=== PATIENT | female | born 1980 | race Caucasian/White ===

== ENCOUNTER → 2022-02-22 | Outpatient (CLI) | payer OTHER, SELFPAY ==
--- NOTE | 2022-02-21 16:29 | BI_ITS ---
MAMMOGRAPHY - BILATERAL SCREENING REASON FOR EXAM: Female, 42 years old. Routine annual screening examination. PERTINENT HISTORY: Grandmother with breast cancer. TECHNIQUE: Digital bilateral breast addi (3D mammographic acquisition) in the CC and MLO projections. 2-D mediolateral oblique (MLO) and craniocaudad (CC) views of both breasts were obtained. CAD: Full Field Digital Mammography with Computer Added Detection was performed. COMPARISON: None. Baseline examination. FINDINGS: Breast Composition: The breasts are heterogeneously dense, which may obscure small masses. There are no dominant masses or suspicious calcifications. No other significant abnormalities are identified. BI/SCRN MAMM (CAD)W/ADDI BILAT IMPRESSION: Negative screening mammogram. Yearly followup mammogram recommended. (A) ASSESSMENT CATEGORY: BIRADS Category 1: Negative. A letter regarding these results will be sent to the patient by the facility within 30 days. Approximately 10% of breast cancers are not detected by mammography. A normal mammogram should not delay biopsy of a clinically suspicious abnormality. [id number] Electronically Signed: Gutierrez Orr MD at 21:24 EDT ,
== END | disposition home or self-care (01) ==
PROVIDERS: PCP Internal Medicine; Visit Provider Internal Medicine
DX: Z12.31 Encounter for screening mammogram for malignant neoplasm of breast (principal); Z80.3 Family history of malignant neoplasm of breast
CPT/HCPCS: 77063; 77067

== ENCOUNTER → 2022-03-01 | Outpatient (CLI) | payer OTHER, SELFPAY ==
[2022-03-01 12:27] LABS: Hematocrit 35.7 % (37-47); Hemoglobin 10.9 g/dL (12.0-15.0); Mean Corp Hgb Conc 30.5 g/dL (32-36); Mean Corpuscular Hgb 23.4 pg (27.0-32.0); Mean Corpuscular Volume 76.8 fL (81-99); Mean Platelet Vol. 10.1 fl (6.2-12.0); Platelet Count 456 K/mm3 (150-450); RBC Distribution Width CV 17.6 % (11.6-14.6); RBC Distribution Width SD 48.6 fl (35.1-43.9); Red Blood Count 4.65 M/mm3 (4.2-5.4); White Blood Count 3.8 K/mm3 (4.4-11.0)
[2022-03-01 12:30] LABS: Anion Gap 6 (5-15); BUN 15 mg/dL (7-18); BUN/Creat Ratio 21.7 RATIO (10-20); Calcium,Total 9.1 mg/dL (8.5-10.1); Chloride 106 mmol/L (98-107); Creatinine, Serum 0.69 mg/dL (0.55-1.02); EST Glomerular Filtration Rate 98 mL/min (>60); Est Glom Filt Rate - Afr Amer 119 mL/min (>60); Glucose 101 mg/dL (74-106); Potassium 4.3 mmol/L (3.5-5.1); Sodium Level 137 mmol/L (136-145)
[2022-03-01 13:07] LABS: Hemoglobin A1c 5.5 % (3.8-5.6)
== END | disposition home or self-care (01) ==
LOC: BIMLAB 08:30
PROVIDERS: PCP Internal Medicine
DX: Z01.812 Encounter for preprocedural laboratory examination (principal); M16.31 Unilateral osteoarthritis resulting from hip dysplasia, right hip; M25.551 Pain in right hip; R79.89 Other specified abnormal findings of blood chemistry
CPT/HCPCS: 36415; 80048; 83036; 85027

== ENCOUNTER → 2022-11-29 | Outpatient (CLI) | payer OTHER, SELFPAY ==
[2022-12-02 11:08] LABS: Chlamydia By Nucleic Acid AMP Negative (Negative); Gonococcus By Nucleic Acid AMP Negative (Negative)
[2022-12-04 16:08] LABS: HPV APTIMA, High Risk Negative (Negative)
== END | disposition home or self-care (01) ==
PROVIDERS: PCP Internal Medicine; Referring Provider Nurse Practitioner Women's Health; Visit Provider Nurse Practitioner Women's Health
DX: Z12.4 Encounter for screening for malignant neoplasm of cervix (principal); Z11.3 Encounter for screening for infections with a predominantly sexual mode of transmission
CPT/HCPCS: 87491; 87591; 87624; 88175; G0145

== ENCOUNTER → 2023-01-01 | Outpatient (CLI) | payer OTHER, SELFPAY ==
--- NOTE | 2023-01-01 13:50 | US_ITS ---
INDICATION: bleeding EXAMINATION: US Pelvis Non OB Complete With Transvaginal Imaging TECHNIQUE: Transabdominal and transvaginal pelvic ultrasound was performed. Grayscale, spectral waveform, and color flow Doppler evaluation of the adnexa. COMPARISON: None. FINDINGS: Uterus measures 9.9 x 4.5 x 7.3 cm, transabdominally. Best seen transvaginally, heterogeneous hypoechoic myometrial masses compatible with fibroids. Right anterior uterine fibroid measures 2.3 x 2.1 x 2.3 cm and left posterior uterine fibroid measures 2.9 x 2.7 x 2.9 cm. Suggestion of septate uterine anatomy. Transvaginally, endometrial stripe measures 7.6 mm diameter. Endometrium is normal echotexture with no discrete lesion. Few cervical nabothian cysts present. No adnexal mass or significant free pelvic fluid detected. Somewhat difficult Doppler evaluation of bilateral ovaries secondary to deep positioning but bilateral ovarian color Doppler flow and spectral Doppler waveforms are demonstrated. Ovaries are normal size with no large or complex cyst. Transvaginally, right ovary measures 2.5 x 1.4 x 1.6 cm and left ovary 3.2 x 2 x 2.2 cm. US/Pelvic (Non ) IMPRESSION: 1. There are at least 2 uterine fibroids, largest measuring almost 3 cm diameter. 2. Unremarkable sonographic appearance of endometrium 3. Cervical nabothian cysts Electronically Signed: Ganesh Witt MD at 6:49 EDT ,
== END | disposition home or self-care (01) ==
PROVIDERS: PCP Internal Medicine; Referring Provider Nurse Practitioner Women's Health; Visit Provider Nurse Practitioner Women's Health
DX: N92.0 Excessive and frequent menstruation with regular cycle (principal)
CPT/HCPCS: 76830; 76856

== ENCOUNTER → 2023-02-28 | Outpatient (CLI) | payer OTHER, SELFPAY ==
[2023-02-28 12:25] LABS: Absolute Lymphocyte Count 1.29 X10^3/uL (0.83-4.51); Absolute Neutrophil Count 2.7 X10^3/uL (2.0-7.7); Basophil# 0.05 X10^3/uL; Basophil% 1.1 % (0-1); Eosinophil# 0.14 X10^3/uL; Hematocrit 38.8 % (37-47); Hemoglobin 11.5 g/dL (12.0-15.0); Lymphocyte # 1.29 X10^3/ul (0.83-4.51); Mean Corp Hgb Conc 29.6 g/dL (32-36); Mean Corpuscular Hgb 22.6 pg (27.0-32.0); Mean Corpuscular Volume 76.2 fL (81-99); Mean Platelet Vol. 10.8 fl (6.2-12.0); Monocyte# 0.39 X10^3/uL; Monocyte% 8.5 % (0-10); NRBC Flagged by Analyzer 0 % (0-5); Neutrophil # 2.71 X10^3/uL (2.7-7.7); Neutrophil % 58.7 % (47-70); Platelet Count 476 K/mm3 (150-450); RBC Distribution Width CV 18.6 % (11.6-14.6); RBC Distribution Width SD 50.3 fl (35.1-43.9); Red Blood Count 5.09 M/mm3 (4.2-5.4); White Blood Count 4.6 K/mm3 (4.4-11.0)
[2023-02-28 13:24] LABS: Anion Gap 7 (5-15); BUN 17 mg/dL (7-18); BUN/Creat Ratio 24.5 RATIO (10-20); Calcium,Total 9.3 mg/dL (8.5-10.1); Chloride 106 mmol/L (98-107); Creatinine, Serum 0.69 mg/dL (0.55-1.02); EST Glomerular Filtration Rate 98 mL/min (>60); Est Glom Filt Rate - Afr Amer 118 mL/min (>60); Glucose 99 mg/dL (74-106); Potassium 4.5 mmol/L (3.5-5.1); Sodium Level 135 mmol/L (136-145)
[2023-02-28 15:04] LABS: Hemoglobin A1c 5.3 % (3.8-5.6)
== END | disposition home or self-care (01) ==
LOC: BIMLAB 08:37
PROVIDERS: PCP Internal Medicine
DX: R79.89 Other specified abnormal findings of blood chemistry (principal)
CPT/HCPCS: 36415; 80048; 83036; 85025

== ENCOUNTER → 2024-02-27 | Outpatient (CLI) | payer OTHER, SELFPAY ==
[2024-02-27 12:42] LABS: Absolute Lymphocyte Count 1.38 X10^3/uL (0.83-4.51); Absolute Neutrophil Count 2.8 X10^3/uL (2.0-7.7); Basophil# 0.05 X10^3/uL; Eosinophil# 0.11 X10^3/uL; Eosinophils% 2.3 % (0-5); Hematocrit 35.7 % (37-47); Hemoglobin 10.8 g/dL (12.0-15.0); Lymphocyte # 1.38 X10^3/ul (0.83-4.51); Lymphocyte % 28.5 % (19-41); Mean Corp Hgb Conc 30.3 g/dL (32-36); Mean Corpuscular Hgb 22.3 pg (27.0-32.0); Mean Corpuscular Volume 73.6 fL (81-99); Mean Platelet Vol. 10.3 fl (6.2-12.0); Monocyte# 0.47 X10^3/uL; Monocyte% 9.7 % (0-10); NRBC Flagged by Analyzer 0 % (0-5); Neutrophil # 2.82 X10^3/uL (2.7-7.7); Neutrophil % 58.3 % (47-70); Platelet Count 475 K/mm3 (150-450); RBC Distribution Width CV 18.6 % (11.6-14.6); RBC Distribution Width SD 48.8 fl (35.1-43.9); Red Blood Count 4.85 M/mm3 (4.2-5.4); White Blood Count 4.8 K/mm3 (4.4-11.0)
[2024-02-27 13:43] LABS: ALB/GLOB Ratio 0.9 RATIO (0.9-2.4); AST(SGOT) 13 U/L (15-37); Alanine Aminotransfer ALT/SGPT 16 U/L (13-56); Albumin, Serum 3.5 g/dL (3.2-5.0); Alkaline Phosphatase 63 U/L (45-117); Anion Gap 9 (5-15); BUN 11 mg/dL (7-18); BUN/Creat Ratio 14.6 RATIO (10-20); Calcium,Total 9.1 mg/dL (8.5-10.1); Chloride 108 mmol/L (98-107); Cholesterol 149 mg/dL (200); Creatinine, Serum 0.76 mg/dL (0.55-1.02); EST Glomerular Filtration Rate 88 mL/min (>60); Est Glom Filt Rate - Afr Amer 106 mL/min (>60); Globulin 3.7 g/dL (2.2-4.2); Glucose 97 mg/dL (74-106); High Density Lipoprotein 67 mg/dL; Protein, Total 7.2 g/dL (6.4-8.2); Sodium Level 138 mmol/L (136-145); Triglycerides 70 mg/dL; Very Low Density Lipoprotein 14 mg/dL (5-40)
== END | disposition home or self-care (01) ==
LOC: BIMLAB 10:52
PROVIDERS: PCP Internal Medicine; Referring Provider Internal Medicine; Visit Provider Internal Medicine
DX: R03.0 Elevated blood-pressure reading, without diagnosis of hypertension (principal); Z13.6 Encounter for screening for cardiovascular disorders
CPT/HCPCS: 36415; 80053; 80061; 85025

== ENCOUNTER → 2024-03-05 | Outpatient (CLI) | payer OTHER, SELFPAY ==
--- NOTE | 2024-03-05 13:55 | BI_ITS ---
MAMMOGRAPHY - BILATERAL SCREENING 3-D TOMOSYNTHESIS REASON FOR EXAM: Female, 44 years old. screening PERTINENT HISTORY: No significant family history. TECHNIQUE: 2-D mammograms and 3-D Tomosynthesis of the breast (s) were performed. CAD was performed. COMPARISON: 02/21/2022 FINDINGS: The breast composition is heterogeneously dense that can obscure small breast masses. Scattered benign calcifications are seen. No dense spiculated masses or suspicious microcalcifications are identified. No architectural distortion is identified. There is no skin thickening or retraction. There has been no significant change since the prior study. BI/SCRN MAMM (CAD)W/ADDI BILAT IMPRESSION: No mammographic signs of malignancy. Routine yearly mammograms recommended. ASSESSMENT CATEGORY: BIRADS Category 1: Negative. A letter regarding these results will be sent to the patient by the facility within 30 days. FOLLOW UP RECOMMENDATION: Yearly follow up mammogram recommended. (A) Approximately 10% of breast cancers are not detected by mammography. A normal mammogram should not delay biopsy of a clinically suspicious abnormality. Electronically Signed: Jese Stevens MD at 14:15 EDT ,
== END | disposition home or self-care (01) ==
LOC: OPBI 13:55
PROVIDERS: PCP Internal Medicine; Referring Provider Internal Medicine; Visit Provider Internal Medicine
DX: Z12.31 Encounter for screening mammogram for malignant neoplasm of breast (principal)
CPT/HCPCS: 77063; 77067

== ENCOUNTER 2025-02-23 11:07 | Emergency (ER) | payer OTHER, SELFPAY ==
[2025-02-23] VITALS (13 sets, daily range): BP systolic 118–146; BP diastolic 74–108; PULSE 71–89; RESP 11–18; TEMP 36.6–37.2; O2SAT 96–100; BMI 34.4
--- NOTE | 2025-02-23 11:20 | ED.RN ---
Seizure pads in place.
--- NOTE | 2025-02-23 11:45 | EKG12_ITS ---
Test Reason : SEIZURE Blood Pressure : */* mmHG Vent. Rate : 76 BPM Atrial Rate : 76 BPM P-R Int : 158 ms QRS Dur : 84 ms QT Int : 386 ms P-R-T Axes : 52 30 57 degrees QTcB Int : 434 ms Normal sinus rhythm Low voltage QRS Borderline ECG Confirmed by MONTY SHARMA, CHALO ([id number]), purchasing expeditor PRINCE GARCIA ([id number]) on 02/25/2025 1:20:42 PM Referred By: Confirmed By: CHALO MILLAN MD
--- NOTE | 2025-02-23 11:45 | EDS_ITS ---
HPI History of Present Illness Chief Complaint: Seizure Narrative Narrative: 45-year-old female presents with possible seizure activity. She states she was at work today, and started having visual disturbance. She has had this before with her previous migraines but has not had a migraine headache in quite some time. She states that yesterday everything was fine, even this morning her states that everything seemed fine. She does not recall calling her today. She felt little lightheaded, and did not feel well. She states that she remembers walking back to a different area and hitting her head on the cupboard. The next thing she remembered she was in the emergency department and they were put in monitoring specialist stickers on her. She states that she bit her tongue and sustained an abrasion to her right elbow. She denies loss of bowel or bladder. There is concern that she might have had a seizure although she denies any previous seizure disorder. [facility] Medical History Disc disorder of lumbar region History of MRSA infection Headache, migraine Osteoarthritis Arthritis Seasonal allergies Home Medications ?Medication ?Instructions ?Recorded ?Last Taken ?Type amlodipine 2.5 mg tablet 2.5 mg PO DAILY 02/23/2510/12 History Allergy/AdvReac Type Severity Reaction Status Date / Time No Known Allergies Allergy Verified 02/23/25 11:10 Family History Mother Anxiety Depression Hypertension Hyperlipemia Father Cancer Hypertension Hyperlipemia Grandfather Myocardial infarction Other Arthritis Surgical History S/P hip replacement History of tubal ligation History of wisdom tooth extraction History of removal of cyst Social History household members: spouse current occupational status: unemployed Smoking Status: Never smoker Electronic Cigarette Use: not used alcohol intake: current alcohol intake frequency: a few times a week substance use type: does not use what type of physical activity do you participate in: none do you feel safe at home: Yes additional social history: -[employer]- 2 step children- Ora Noe ROS ED ROS Narrative Review of systems positive for visual disturbance, questionable seizure activity. Abrasion to right elbow. Bit tongue. Mild headache. No loss of bowel or bladder. No definitive postictal state. EXAM Physical Exam Narrative Exam Narrative: Afebrile. Vital signs noted. Nontoxic-appearing. Cardiovascular examination reveals regular rate and rhythm. Lungs are clear to auscultation bilaterally. Abdomen is soft and nontender without guarding or rebound. Positive bowel sounds. Neurological examination is nonfocal, nonlateralizing. Able to raise arms above head without difficulty. Awake, alert, oriented x 3. Moves all extremities. PERRL, EOMI. Const Vital Signs: 02/23/25 11:10 02/23/25 11:56 02/23/25 12:07 Temperature 97.8 F Temperature Source Oral Pulse Rate 89 76 Pulse Rate [Lying] 81 Pulse Rate [Sitting (for 1 minute prior to obtaining)] 82 Pulse Rate [Standing (for 1 minute prior to obtaining)] 84 Respiratory Rate 16 18 Blood Pressure 142/90 H 131/89 H Blood Pressure [Lying] 121/83 H Blood Pressure [Sitting (for 1 minute prior to obtaining)] 118/92 H Blood Pressure [Standing (for 1 minute prior to obtaining)] 122/98 H Blood Pressure Mean 107 103 Blood Pressure Mean [Lying] 95 Blood Pressure Mean [Sitting (for 1 minute prior to obtaining)] 100 Blood Pressure Mean [Standing (for 1 minute prior to obtaining)] 106 Pulse Ox 97 96 Oxygen Delivery Method Room Air Room Air 02/23/25 13:00 02/23/25 14:00 02/23/25 15:00 Temperature Temperature Source Pulse Rate 73 72 78 Pulse Rate [Lying] Pulse Rate [Sitting (for 1 minute prior to obtaining)] Pulse Rate [Standing (for 1 minute prior to obtaining)] Respiratory Rate 16 Blood Pressure 128/108 H 142/98 H 146/99 H Blood Pressure [Lying] Blood Pressure [Sitting (for 1 minute prior to obtaining)] Blood Pressure [Standing (for 1 minute prior to obtaining)] Blood Pressure Mean 114 112 114 Blood Pressure Mean [Lying] Blood Pressure Mean [Sitting (for 1 minute prior to obtaining)] Blood Pressure Mean [Standing (for 1 minute prior to obtaining)] Pulse Ox 99 100 100 Oxygen Delivery Method Room Air Room Air Room Air 02/23/25 16:00 Temperature Temperature Source Pulse Rate 75 Pulse Rate [Lying] Pulse Rate [Sitting (for 1 minute prior to obtaining)] Pulse Rate [Standing (for 1 minute prior to obtaining)] Respiratory Rate Blood Pressure 146/99 H Blood Pressure [Lying] Blood Pressure [Sitting (for 1 minute prior to obtaining)] Blood Pressure [Standing (for 1 minute prior to obtaining)] Blood Pressure Mean 114 Blood Pressure Mean [Lying] Blood Pressure Mean [Sitting (for 1 minute prior to obtaining)] Blood Pressure Mean [Standing (for 1 minute prior to obtaining)] Pulse Ox 100 Oxygen Delivery Method Room Air MDM MDM MDM Narrative Medical decision making narrative: The differential diagnosis includes but not limited to atypical migraine/migrain e with aura versus closed head injury versus intracranial hemorrhage versus new onset seizure versus syncopal episode. Comprehensive workup was pursued. I do feel CT imaging of the brain is indicated. Seizure precautions were instilled. EKG was obtained as well as basic laboratory work including CBC and CMP. I did add a lactic acid as well as a prolactin. EKG was obtained and interpreted by myself independently as normal sinus rhythm at 76 bpm without ectopy or acute ST changes. No STEMI. QTc is normal at 434 ms. I reviewed her laboratory work and she has normal white count 9.7 with h emoglobin normal at 14.0, hematocrit 45.8, platelet count slightly elevated at 542 which may be more of an acute phase reactant. CO2 is low at 10.4 with BUN of 10 and creatinine 0.82. AST and ALT as well as alk phos normal. Lactic acid is elevated at 3.2 which may be consistent with recent seizure. Upon repeat examination, patient states that she still has a C-type headache on the right side of her head. I reviewed the radiology report of the CT of the brain and there is a large cystic change in the right posterior medial right parieto-occipital lobes concerning for brain mass. It measures 4 cm x 6.2 cm. I discussed the patient with the radiologist and while MRI is preferred, currently unavailable a CT with IV contrast was obtained. I reviewed the radiology report and there is no significant enhancement seen. Neoplastic etiology should be ruled out as well as infectious. However, she is not febrile, nor is she having leukocytosis here. She was able to ambulate to the bathroom with mild assistance. At this point in time, I discussed the results with the patient and her . I do feel that she requires transfer for further workup. 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 Of note, her did state that about a month ago [place], she had an episode of visual disturbance and headache. It was reported that while the patient was at work today, she felt very nauseated, started vomiting and reportedly had a seizure. I will discuss the patient with [facility] neurosurgery to see if she needs to be loaded with antiseizure medication and if they would like Decadron given. I discussed the patient with Dr. Canela with neurosurgery [facility]. He reviewed the CT. He requested that 1 g of Keppra be administered but deferred Decadron until after MRI. At this point in time, he has accepted her in transfer for further workup and MRI. As she is awaiting a bed, patient will be signed out to the oncoming physician, Dr. Shon Allen, who will ensure transfer or discussed the patient with the hospitalist after 6 hours if transfer not complete secondary to bed availability. Currently, patient is in stable condition. History & Record Review Discussion w/independent historian: Patient and Family () Additional record(s) reviewed:: Prior ED visit (No prior ED visits) Lab Data Attestation: I reviewed the patient's lab results. Labs: Laboratory Results - last 24 hr 02/23/25 11:50 WBC 9.7 RBC 5.34 Hgb 14.0 Hct 45.8 MCV 85.8 MCH 26.2 L MCHC 30.6 L RDW Std Deviation 50.4 H RDW Coeff of Matt 16.1 H Plt Count 542 H MPV 10.3 Immature Gran % (Auto) 0.300 Neut % (Auto) 46.7 L Lymph % (Auto) 39.5 [place] % (Auto) 10.0 Eos % (Auto) 2.4 Baso % (Auto) 1.1 H Absolute Neuts (auto) 4.5 Absolute Lymphs (auto) 3.83 Nucleated RBC % 0 Sodium 138 Potassium 3.7 Chloride 100 Carbon Dioxide 10.4 L Anion Gap 28 H BUN 10 Creatinine 0.82 Estim Creat Clear Calc 97.17 Est GFR (MDRD) Non-Af 89 BUN/Creatinine Ratio 12.5 Glucose 119 H Lactic Acid 3.2 H* Calcium 9.5 Total Bilirubin 0.36 AST 23 ALT 15 Alkaline Phosphatase 71 Total Protein 7.8 Albumin 4.6 Globulin 3.3 Albumin/Globulin Ratio 1.4 Serum , Qual NEGATIVE Radiography Diagnostic Testing: Clinical Impression(s) from Imaging Studies Brain CT 02/23/25 12:10 IMPRESSION: Large cystic change in the posterior medial right parieto-occipital lobes as described with heterogeneous appearance in its central portion. Correlation with enhanced CT scan and/or MRI recommended for further evaluation. Reading Location: [id number] Brain CT 02/23/25 12:56 IMPRESSION: No significant enhancement is seen. Stable hypodense mass in the right hemisphere as described. A neoplastic process should be ruled out although an infectious process should be considered in the differential. Reading Location: [facility] Management Discussion w/another healthcare provider: Bookkeeping Manager (Dr. Canela, [facility] neurosurgery) Discharge Plan Triage Chief Complaint: Seizure ED Provider: Isrrael Adams Dx/Rx/DC Orders Prescriptions: No Action amlodipine 2.5 mg tablet 2.5 mg PO DAILY Primary Care Provider: Enid Doty Referrals: Meaghan Simmons MD [Med Staff - Active Staff, Internal Medicine] Print Language: Northern Irish
[2025-02-23 11:57] LABS: Hematocrit 45.8 % (37-47); Hemoglobin 14.0 g/dL (12.0-15.0); Immature Granulocytes Count 0.030 X10^3/uL (0.0-0.0); Mean Corp Hgb Conc 30.6 g/dL (32-36); Mean Corpuscular Volume 85.8 fL (81-99); Mean Platelet Vol. 10.3 fl (6.2-12.0); NRBC Flagged by Analyzer 0 % (0-5); Platelet Count 542 K/mm3 (150-450); RBC Distribution Width CV 16.1 % (11.6-14.6); RBC Distribution Width SD 50.4 fl (35.1-43.9); Red Blood Count 5.34 M/mm3 (4.2-5.4); White Blood Count 9.7 K/mm3 (4.4-11.0)
--- NOTE | 2025-02-23 12:10 | CT_ITS ---
PROCEDURE: BRAIN/HEAD WITHOUT CONTRAST 02/23/2025 REASON FOR EXAM: HEADACHE, TRAUMA TECHNIQUE: Procedure Code: CTBR Modality: CT Procedure: BRAIN/HEAD WITHOUT CONTRAST Coronal and Sagittal reconstruction series were provided. One or more dose reduction techniques were used (e.g., Automated exposure control, adjustment of the mA and/or kV according to patient size, use of iterative reconstruction technique. RADIATION DOSE SUMMARY: CTDlvol: 44.99 mGy DLP: 779.24 mGycm COMPARISON: None FINDINGS: Brain: There is a 4 cm x 6.2 cm large hypodense mass in the medial right posterior parietal occipital lobes abutting the cerebral falx. Heterogeneous hypodensity seen within it extending to the vertex. This may represent either a neoplastic process or ischemic change. There is evidence of surrounding edema and mass effect. A repeat examination following IV contrast and/or MRI recommended for further evaluation. CSF Spaces: No evidence of hydrocephalus. Sinuses/Mastoids: Clear at visualized levels Bones: No bony abnormality. CT/Brain/Head without Contrast IMPRESSION: Large cystic change in the posterior medial right parieto-occipital lobes as de scribed with heterogeneous appearance in its central portion. Correlation with enhanced CT scan and/or MRI recommended for further evaluation. Reading Location: [facility]
[2025-02-23 12:17] LABS: Internal QC Validated? YES +Cl - CLEAR BKGD; Pregnancy, Serum, hCG Quali. NEGATIVE Negative; Record Kit Lot#, Serum Preg. 980607
[2025-02-23 12:40] LABS: AST(SGOT) 23 U/L (<=31); Alanine Aminotransfer ALT/SGPT 15 U/L (<=34); Albumin, Serum 4.6 g/dL (3.5-5.0); Alkaline Phosphatase 71 U/L (35-104); Anion Gap 28 (5-15); BUN 10 mg/dL (4-19); BUN/Creat Ratio 12.5 RATIO (10-20); Calcium,Total 9.5 mg/dL (7.6-11.0); Carbon Dioxide 10.4 mmol/L (21.0-32.0); Chloride 100 mmol/L (98-108); Estimated Creatinine Clearance 97.17 ml/min (50-250); Globulin 3.3 g/dL (2.2-4.2); Glucose 119 mg/dL (70-99); Potassium 3.7 mmol/L (3.3-5.1)
--- NOTE | 2025-02-23 12:56 | CT_ITS ---
PROCEDURE: BRAIN/HEAD WITH CONTRAST 02/23/2025 REASON FOR EXAM: BRAIN MASS TECHNIQUE: Procedure Code: CTBRW Modality: CT Procedure: BRAIN/HEAD WITH CONTRAST Coronal and Sagittal reconstruction series were provided. CONTRAST: Isovue-300 VOLUME: 100 mL One or more dose reduction techniques were used (e.g., Automated exposure control, adjustment of the mA and/or kV according to patient size, use of iterative reconstruction technique). RADIATION DOSE SUMMARY: CTDlvol: 44.99 mGy DLP: 1468.48 mGycm COMPARISON: Comparison is made with prior unenhanced study done earlier in the day. FINDINGS: Brain: Once again, there is a 4 cm by 6.2 cm hypodense mass in the left medial right posterior parietal occipital lobes abutting the cerebral falx. Heterogeneous hypodensity seen along its superior pole. No significant enhancement is seen. A neoplastic process should be ruled out. An infectious process should be considered as well. CSF Spaces: Normal Sinuses/Mastoids: Clear at visualized levels Bones: CT/Brain/Head WITH Contrast IMPRESSION: No significant enhancement is seen. Stable hypodense mass in the right hemisph ere as described. A neoplastic process should be ruled out although an infectious process should be considered in the differenti al. Reading Location: [facility]
--- NOTE | 2025-02-23 14:32 | PCA ---
CALLED [facility] @ [phone] FOR TRANSFER
[2025-02-23 16:02] LABS: Reflex Lactate? Y
--- NOTE | 2025-02-23 16:07 | PCA ---
[facility] CALLED BACK AND ACCEPTED @ [id number] JUST WAITING FOR A BED ASSIGNMENT
[2025-02-23] MEDS: levETIRAcetam IV 1,000 MG/100 ML BAG 400 MG IV (16:29)
--- NOTE | 2025-02-23 19:17 | PCA ---
PT ASSIGNED BED AT [facility] [id number] [phone] LOCAL TRANSPORT ARRANGED.
--- NOTE | 2025-02-23 21:46 | ED.RN ---
attempt to call report to [facility]. [place] states nurse will call back
--- NOTE | 2025-02-23 22:05 | ED.RN ---
Nurse from [facility] called back for report
[2025-02-24 04:07] LABS: PROLACTIN 71.1 ng/mL (4.8-33.4)
== END 2025-02-23 21:56 | disposition short-term general hospital (02) ==
PROVIDERS: Emergency Provider Emergency Medicine; PCP Internal Medicine; Visit Provider Emergency Medicine
DX: R56.9 Unspecified convulsions (principal); Z79.899 Other long term (current) drug therapy
CPT/HCPCS: 70450; 70460; 80053; 83605; 84146; 84703; 85025; 93005; 96365; 99285; Q9967; A4216